=== PATIENT | female | born 1970 | race Caucasian/White ===

== ENCOUNTER 2018-09-18 06:49 | Inpatient (IN) | payer BC ==
[2018-09-13 14:27] LABS: BASOPHILS # (AUTO) 0.1 X10'3 (0-0.2); BASOPHILS % (AUTO) 1.6 % (0-1); EOSINOPHILS # (AUTO) 0.2 X10'3 (0-0.9); EOSINOPHILS % (AUTO) 3.6 % (0-6); LYMPHOCYTES # (AUTO) 1.7 X10'3 (1.1-4.8); LYMPHOCYTES % (AUTO) 26.1 % (21-51); MEAN CORPUSCULAR HEMOGLOBIN 28.9 PG (27.0-31.0); MEAN CORPUSCULAR HGB CONC 33.2 % (33.0-36.5); MEAN PLATELET VOLUME 9.3 FL (7.4-10.4); MONOCYTES # (AUTO) 0.5 X10'3 (0-0.9); MONOCYTES % (AUTO) 7.6 % (2-12); NEUTROPHILS % (AUTO) 61.1 % (42-75); PRE OP HEMATOCRIT 42.7 % (35.0-45.0); PRE OP HEMOGLOBIN 14.2 g/dL (12.0-16.0); PRE OP PLATELET COUNT 290 X10'3 (140-440); RED BLOOD COUNT 4.91 X10'6 (4.20-5.60); RED CELL DISTRIBUTION WIDTH 13.1 % (11.5-14.5)
[2018-09-13 14:43] LABS: PRE OP PROTIME 9.8 SECONDS (9.0-12.0)
[2018-09-13 14:45] LABS: ALBUMIN 3.6 G/DL (3.4-5.0); ALBUMIN/GLOBULIN RATIO 0.9 (1.1-1.5); ALKALINE PHOSPHATASE 69 IU/L (46-116); BLOOD UREA NITROGEN 13 MG/DL (7-18); BUN/CREATININE RATIO 14.6 (6.6-38.0); CALCIUM 8.9 MG/DL (8.5-10.1); CHLORIDE 103 MMOL/L (99-107); CREATININE 0.89 MG/DL (0.40-0.90); PRE OP ALT 30 U/L (30-65); PRE OP ANION GAP 6 (8-16); PRE OP AST 18 U/L (10-37); PRE OP BILIRUB, TOTAL 0.3 MG/DL (0.0-1.0); PRE OP GLUCOSE 93 MG/DL (70-104); PRE OP POTASSIUM 3.8 MMOL/L (3.4-5.1); PRE OP SODIUM 139 MMOL/L (135-145); TOTAL CARBON DIOXIDE 30.3 MMOL/L (24-32); TOTAL PROTEIN 7.5 G/DL (6.4-8.2); eGFR 68 ML/MIN
[2018-09-18] VITALS (18 sets, daily range): BP systolic 108–142; BP diastolic 45–82
[~2018-09-18] VITALS: Ht 175.3 cm; Wt 102.1 kg
[~2018-09-18 06:49] MED LIST: BUPIVAcaine/PF 2.5mg/ml (0.25%) 10ml vial ONE; LIDOcaine 1% 30ml preserv. free vial ONE; NO HOME MEDS; ceFOXitin 2 GM ADDvantage bag 100 ML IV ONE; clindamycin phosphate 40gm vag cream ONE; famotidine 20mg tablet PO ONE; morphine 10mg/ml inj. ONE; ringers solution, lacted 1,000 ML IV SCH; vasoPRESSIN 20 units/ml inj. ONE
[2018-09-18] MEDS ORDERED: sevoflurane 250ml liquid IH ONE (09:12)
[2018-09-18] MEDS ORDERED: fentaNYL /PF 50mcg/ml 5ml ampule ONE (09:16)
[2018-09-18] MEDS ORDERED: midazolam 2 mg/2 ml injection ONE (09:16)
[2018-09-18] MEDS ORDERED: propofol inj 20 ML IV ONE (09:32)
[2018-09-18] MEDS ORDERED: LIDOcaine 2% (20mg/ml) 5ml vial ONE (09:32)
[2018-09-18] MEDS ORDERED: dexamethasone sod phosphate 4mg/ml inj. ONE (09:33)
[2018-09-18] MEDS ORDERED: rocuronium 10mg/ml inj IV ONE ×2 (09:34→11:32)
[2018-09-18] MEDS ORDERED: fluoroscein sod 10% (100mg/ml) 5ml vial ONE (09:34)
[2018-09-18] MEDS ORDERED: ringers solution, lacted 1,000 ML IV SCH (10:09)
[2018-09-18] MEDS ORDERED: proCHLORperazine 10 MG/2 ml inj IV PRN (10:10)
[2018-09-18] MEDS ORDERED: meperidine/PF 25mg/ml syringe IV PRN ×3 (10:10)
[2018-09-18] MEDS ORDERED: ondansetron/PF 4mg/2ml inj IV PRN ×2 (10:10→12:35)
[2018-09-18] MEDS ORDERED: morphine 4 MG/ML inj SYRINge IV PRN ×2 (10:10)
[2018-09-18] MEDS ORDERED: glycopyrrolate 0.2mg/ml inj ONE (11:32)
[2018-09-18] MEDS ORDERED: neostigmine methylsulfate 1 MG/ML 10ml vial ONE (11:32)
[2018-09-18] MEDS ORDERED: ondansetron/PF 4mg/2ml inj ONE (11:32)
[2018-09-18] MEDS ORDERED: meperidine/PF 50mg/ml syringe ONE (11:45)
[2018-09-18] MEDS ORDERED: ceFOXitin 1000 MG inj ONE ×2 (12:25)
[2018-09-18] MEDS: ringers solution, lacted 1,000 ML IV SCH ×3 (12:32→23:27)
[2018-09-18] MEDS ORDERED: CADD PCA waste documentation MC PRN (12:35)
[2018-09-18] MEDS ORDERED: naloxone 0.4 mg/ml inj IV PRN (12:35)
[2018-09-18] MEDS ORDERED: diphenhydrAMINE 50 mg/ml inj IV PRN (12:35)
[2018-09-18] MEDS ORDERED: normal saline 500ml IV soln 500 ML IV PRN (12:35)
[2018-09-18] MEDS ORDERED: temazepam 15mg capsule PO PRN (12:35)
[2018-09-18] MEDS ORDERED: magnesium hydroxide 30ml (MOM) UD suspension PO PRN (12:35)
[2018-09-18] MEDS: simethicone 80mg chew tab PO SCH ×2 (13:00→17:50)
[2018-09-18] MEDS: HYDROmorphone/NS 1 mg/ml CADD 50 ML IV SCH ×6 (13:19→23:00)
[2018-09-19] VITALS: BP 130/69
[2018-09-19] MEDS: HYDROmorphone/NS 1 mg/ml CADD 50 ML IV SCH ×8 (01:00→15:00)
[2018-09-19 04:30] VITALS: BP 106/55
[2018-09-19 05:06] LABS: BASOPHILS % (AUTO) 0.2 % (0-1); EOSINOPHILS # (AUTO) 0.2 X10'3 (0-0.9); EOSINOPHILS % (AUTO) 1.4 % (0-6); HEMATOCRIT 37.2 % (35.0-45.0); HEMOGLOBIN 12.4 g/dl (12.0-16.0); LYMPHOCYTES # (AUTO) 0.7 X10'3 (1.1-4.8); LYMPHOCYTES % (AUTO) 5.8 % (21-51); MEAN CORPUSCULAR HEMOGLOBIN 29.1 PG (27.0-31.0); MEAN CORPUSCULAR HGB CONC 33.4 % (33.0-36.5); MEAN CORPUSCULAR VOLUME 87.1 FL (78-98); MEAN PLATELET VOLUME 9.4 FL (7.4-10.4); MONOCYTES % (AUTO) 7.7 % (2-12); NEUTROPHILS # (AUTO) 10.8 X10'3 (1.8-7.7); NEUTROPHILS % (AUTO) 84.9 % (42-75); PLATELET COUNT 238 X10'3 (140-440); RED BLOOD COUNT 4.27 X10'6 (4.20-5.60); RED CELL DISTRIBUTION WIDTH 13.5 % (11.5-14.5); WHITE BLOOD COUNT 12.8 X10'3 (4.5-11.0)
[2018-09-19 08:00] VITALS: BP 113/66
[2018-09-19] MEDS: simethicone 80mg chew tab PO SCH ×3 (08:33→17:19)
[2018-09-19] MEDS: ringers solution, lacted 1,000 ML IV SCH ×2 (08:34→17:17)
[2018-09-19 11:00] VITALS: BP 103/60
[2018-09-19] MEDS: ketorolac trometh. 30mg/ml inj. IV PRN ×2 (17:25→23:31)
[2018-09-19 20:00] VITALS: BP 132/72
[2018-09-19] MEDS: enoxaparin 40mg/0.4ml syringe SUBCUT SCH (20:34)
[2018-09-20] VITALS: BP 142/65
[2018-09-20] MEDS: ringers solution, lacted 1,000 ML IV SCH ×3 (00:20→20:35)
[2018-09-20 07:00] VITALS: BP 140/71
[2018-09-20] MEDS: simethicone 80mg chew tab PO SCH ×3 (09:27→18:12)
[2018-09-20] MEDS: enoxaparin 40mg/0.4ml syringe SUBCUT SCH (09:28)
[2018-09-20] MEDS: ketorolac trometh. 30mg/ml inj. IV PRN (10:52)
[2018-09-20 11:00] VITALS: BP 126/76
[2018-09-20 20:00] VITALS: BP 125/77
[2018-09-21] VITALS: BP 128/73
[2018-09-21] MEDS: ringers solution, lacted 1,000 ML IV SCH (05:17)
[2018-09-21 05:25] LABS: BASOPHILS % (AUTO) 0.1 % (0-1); EOSINOPHILS % (AUTO) 0.5 % (0-6); HEMATOCRIT 31.7 % (35.0-45.0); HEMOGLOBIN 10.7 g/dl (12.0-16.0); LYMPHOCYTES # (AUTO) 0.8 X10'3 (1.1-4.8); LYMPHOCYTES % (AUTO) 9.9 % (21-51); MEAN CORPUSCULAR HEMOGLOBIN 29.2 PG (27.0-31.0); MEAN CORPUSCULAR HGB CONC 33.6 % (33.0-36.5); MEAN CORPUSCULAR VOLUME 86.7 FL (78-98); MEAN PLATELET VOLUME 9.6 FL (7.4-10.4); MONOCYTES # (AUTO) 0.6 X10'3 (0-0.9); MONOCYTES % (AUTO) 6.8 % (2-12); NEUTROPHILS # (AUTO) 6.8 X10'3 (1.8-7.7); NEUTROPHILS % (AUTO) 82.7 % (42-75); PLATELET COUNT 184 X10'3 (140-440); RED BLOOD COUNT 3.66 X10'6 (4.20-5.60); RED CELL DISTRIBUTION WIDTH 13.4 % (11.5-14.5); WHITE BLOOD COUNT 8.2 X10'3 (4.5-11.0)
[2018-09-21 05:48] LABS: ALBUMIN 2.4 G/DL (3.4-5.0); ANION GAP 8 (8-16); BLOOD UREA NITROGEN 4 MG/DL (7-18); BUN/CREATININE RATIO 5.5 (6.6-38.0); CALCIUM 7.9 MG/DL (8.5-10.1); CHLORIDE 105 MMOL/L (99-107); CREATININE 0.73 MG/DL (0.40-0.90); GLUCOSE 117 MG/DL (70-104); POTASSIUM 3.3 MMOL/L (3.5-5.1); SODIUM 139 MMOL/L (135-145); TOTAL CARBON DIOXIDE 26.1 MMOL/L (24-32); eGFR 86 ML/MIN
[2018-09-21 07:31] VITALS: BP 117/84
[2018-09-21] MEDS ORDERED: potassium Cl 40MEQ/NS 500ml 500 ML IV PRN ×2 (07:45)
[2018-09-21] MEDS ORDERED: magnesium Cl slow-release 64mg tablet PO PRN (07:45)
[2018-09-21] MEDS ORDERED: magnesium 4gm in 100ml NS 100 ML IV PRN (07:45)
[2018-09-21] MEDS ORDERED: potassium Cl 20 mEq SR tablet PO PRN (07:45)
[2018-09-21] MEDS ORDERED: magnesium 2GM in 50ml NS 50 ML IV PRN (07:45)
[2018-09-21] MEDS: simethicone 80mg chew tab PO SCH ×3 (09:06→18:45)
[2018-09-21] MEDS: potassium Cl 20 mEq SR tablet PO PRN ×3 (09:06→16:51)
[2018-09-21] MEDS: enoxaparin 40mg/0.4ml syringe SUBCUT SCH (09:07)
[2018-09-21 11:03] VITALS: BP 120/79
[2018-09-21] MEDS ORDERED: HYDROcodone/acetaminophen 5mg/325mg tablet PO PRN (12:00)
[2018-09-21] MEDS: acetaminophen 325mg tablet PO PRN ×2 (12:37→22:56)
[2018-09-21 20:00] VITALS: BP 128/82
[2018-09-21] MEDS ORDERED: magnesium hydroxide 30ml (MOM) UD suspension PO ONE (20:00)
[2018-09-22 00:45] VITALS: BP 129/78
[2018-09-22 07:39] VITALS: BP 134/76
[2018-09-22] MEDS: simethicone 80mg chew tab PO SCH ×2 (08:30→12:47)
[2018-09-22] MEDS: enoxaparin 40mg/0.4ml syringe SUBCUT SCH (08:31)
[2018-09-22 11:57] VITALS: BP 120/81
== END 2018-09-22 16:10 | disposition home or self-care (01) | DRG 331 ==
LOC: PAS 06:49 → SUR 3N 12:32
PROVIDERS: ADMIT Specialist; ATTEND Specialist
PROC: 0DNN4ZZ Release Sigmoid Colon, Percutaneous Endoscopic Approach (ICD-10-PCS; principal; 2018-09-18 09:12)
PROC: 0DBN0ZZ Excision of Sigmoid Colon, Open Approach (ICD-10-PCS; 2018-09-18 09:12)
DX: K57.30 Diverticulosis of large intestine without perforation or abscess without bleeding (principal); N81.4 Uterovaginal prolapse, unspecified; R10.2 Pelvic and perineal pain; N94.6 Dysmenorrhea, unspecified; N73.6 Female pelvic peritoneal adhesions (postinfective); N92.0 Excessive and frequent menstruation with regular cycle; N39.3 Stress incontinence (female) (male); Z98.51 Tubal ligation status
CPT/HCPCS: 36415; 74018; 80048; 80053; 85025; 85610; 85730; 86885; 86900; 86901; 87070; A4315; A4355; A6250; A7000; G0378; J0690; J0694; J1100; J1170; J1650; J1885; J2001; J2175; J2250; J2270; J2405; J2704; J2710; J3010; J3490; J7030; J7120

== ENCOUNTER 2018-09-29 10:20 | Outpatient (CLI) | payer BC ==
[~2018-09-29 10:20] MED LIST changes: -BUPIVAcaine/PF 2.5mg/ml (0.25%) 10ml vial ONE; -LIDOcaine 1% 30ml preserv. free vial ONE; -ceFOXitin 2 GM ADDvantage bag 100 ML IV ONE; -clindamycin phosphate 40gm vag cream ONE; -famotidine 20mg tablet PO ONE; -morphine 10mg/ml inj. ONE; -ringers solution, lacted 1,000 ML IV SCH; -vasoPRESSIN 20 units/ml inj. ONE
[2018-09-29] MEDS ORDERED: HYDR-4353 PO (12:56)
== END 2018-09-29 12:57 | disposition home or self-care (01) ==
LOC: WOUND CARE 10:20 → EDSTATUS 10:30 → WOUND CARE 12:57
PROVIDERS: ATTEND Surgery
DX: T81.89XA Other complications of procedures, not elsewhere classified, initial encounter (principal); Y83.8 Other surgical procedures as the cause of abnormal reaction of the patient, or of later complication, without mention of misadventure at the time of the procedure; Y92.89 Other specified places as the place of occurrence of the external cause
CPT/HCPCS: 97605; A4456

== ENCOUNTER 2018-10-06 09:11 | Day surgery (SDC) | payer BC ==
[~2018-10-06 09:11] MED LIST changes: +HYDR-4353 PO
== END 2018-10-06 10:56 | disposition home or self-care (01) ==
LOC: WOUND CARE 09:11
PROVIDERS: ATTEND Surgery
DX: T81.89XD Other complications of procedures, not elsewhere classified, subsequent encounter (principal); L98.492 Non-pressure chronic ulcer of skin of other sites with fat layer exposed; Y83.8 Other surgical procedures as the cause of abnormal reaction of the patient, or of later complication, without mention of misadventure at the time of the procedure
CPT/HCPCS: 97597; A4456

== ENCOUNTER 2018-10-13 09:16 | Day surgery (SDC) | payer BC ==
[~2018-10-13 09:16] MED LIST changes: -NO HOME MEDS
--- NOTE | 2018-10-13 11:30 | NUR ---
Patient ambulated independently from [facility] and was admitted to outpatient wound care for physician visit with Asim King MD. Dressing removed, wound cleansed and lidocaine applied per order. Patient assessed for changes in conditions, medications and medical history. 1050 - Dr. King at bedside accompanied by RN. Wound assessed, time out performed by MD/RN. Wound debrided as detailed in the physician progress/procedure note. Plan of care discussed with patient. Dressings placed per MD orders. Patient instructed on the signs and symptoms of infection and to call the Wound Center if any occur or to go to the ED if we are closed: Increased pain in wound Increase in drainage from the wound Redness in the skin surrounding the wound Bleeding from the wound Temperature of 101 or greater Patient instructed that the weight of their body puts a large amount of pressure on their wounds. This pressure keeps the new tissue from growing and inhibits new blood vessels from forming. Explained that, if they continue to bear weight on a body part that has a wound, the time it takes to heal the wound increases, the wound may get worse or the wound may not heal at all. Patient verbalized understanding of all discharge instructions and plan of care and ambulated independently out to [facility] in stable condition with no sign or symptom of distress at time of discharge.
== END 2018-10-13 10:56 | disposition home or self-care (01) ==
LOC: WOUND CARE 09:16
PROVIDERS: ATTEND Surgery
DX: T81.89XD Other complications of procedures, not elsewhere classified, subsequent encounter (principal); L98.492 Non-pressure chronic ulcer of skin of other sites with fat layer exposed; Y83.8 Other surgical procedures as the cause of abnormal reaction of the patient, or of later complication, without mention of misadventure at the time of the procedure
CPT/HCPCS: 17250; 97597; A6021; A6212

== ENCOUNTER 2018-10-27 09:05 | Outpatient (CLI) | payer BC ==
--- NOTE | 2018-10-27 10:30 | NUR ---
Patient ambulated independently from [facility] and was admitted to outpatient wound care for physician visit with Asim King MD. Dressing removed, wound cleansed. Patient assessed for changes in conditions, medications and medical history. 1015 - Dr. King at bedside accompanied by RN. Wound assessed by and is declared healed. Plan of care discussed with patient. No dressings ordered or placed; patient is discharged from the wound clinic to follow up on an as needed basis. Patient instructed on the signs and symptoms of infection and to call the Wound Center if any occur or to go to the ED if we are closed: Increased pain in wound Increase in drainage from the wound Redness in the skin surrounding the wound Bleeding from the wound Temperature of 101 or greater Patient instructed that the weight of their body puts a large amount of pressure on their wounds. This pressure keeps the new tissue from growing and inhibits new blood vessels from forming. Explained that, if they continue to bear weight on a body part that has a wound, the time it takes to heal the wound increases, the wound may get worse or the wound may not heal at all. Patient verbalized understanding of all discharge instructions and plan of care and ambulated independently out to [facility] in stable condition with no sign or symptom of distress at time of discharge.
== END 2018-10-27 10:26 | disposition home or self-care (01) ==
LOC: WOUND CARE 09:05 → EDSTATUS 09:30 → WOUND CARE 10:26
PROVIDERS: ATTEND Surgery
DX: T81.89XD Other complications of procedures, not elsewhere classified, subsequent encounter (principal); L98.492 Non-pressure chronic ulcer of skin of other sites with fat layer exposed; Z85.3 Personal history of malignant neoplasm of breast; Z90.13 Acquired absence of bilateral breasts and nipples; Y83.8 Other surgical procedures as the cause of abnormal reaction of the patient, or of later complication, without mention of misadventure at the time of the procedure
CPT/HCPCS: G0463